=== PATIENT | female | born 1965 | race Caucasian/White ===

== ENCOUNTER 2018-08-16 07:13 | Outpatient (CLI) | payer OTHER | END 2018-08-16 07:15 | disposition home or self-care (01) | LOC: SONOGRAMA 07:13 | DX: E04.1 Nontoxic single thyroid nodule (principal) ==

== ENCOUNTER 2019-01-14 07:52 | Day surgery (SDC) | payer OTHER | END 2019-01-14 14:08 | disposition home or self-care (01) | LOC: AMB-ENDOS 07:52 | DX: K63.5 Polyp of colon (principal); K64.2 Third degree hemorrhoids ==